=== PATIENT | female | born 1970 ===

== ENCOUNTER 2023-10-06 09:30 | Day surgery (SDC) | payer OTHER ==
[~2023-10-06] VITALS: Ht 157.5 cm; Wt 67.6 kg
[2023-10-06] MEDS ORDERED: fentaNYL citrate 0.05 MG/ML VIAL ONE (10:14)
[2023-10-06] MEDS ORDERED: LIDOCAINE 2% 100 MG/5 ML UJET TP ONE (10:15)
[2023-10-06] MEDS: fentaNYL citrate 0.05 MG/ML VIAL IVP ONE (10:40)
[2023-10-06] MEDS ORDERED: fentaNYL citrate 0.05 MG/ML VIAL IVP ONE (13:55)
== END 2023-10-06 11:55 | disposition home or self-care (01) ==
LOC: MDS 09:30 → MMU 09:31 → MDS 11:55
PROVIDERS: ATTEND Internal Medicine Gastroenterology
DX: Z12.11 Encounter for screening for malignant neoplasm of colon (principal); K63.5 Polyp of colon
CPT/HCPCS: 45385; J3010